=== PATIENT | male | born 1945 | race Caucasian/White ===

== ENCOUNTER 2025-01-08 14:16 | Inpatient (IN) ==
[2025-01-08] MEDS ORDERED: IOPAMIDOL 100 ML BOTTLE IV ONE (14:17)
[2025-01-08 15:25] LABS: Basophils # (Auto) 0.05 K/mcL (0.00-0.30); Basophils % (Auto) 0.2 % (0.0-2.0); Eosinophils # (Auto) 0.04 K/mcL (0.00-0.70); Eosinophils % (Auto) 0.2 % (0.0-7.0); Hematocrit 41.6 % (40.1-51.0); Hemoglobin 14.1 g/dL (13.7-17.5); Lymphocytes # (Auto) 0.41 K/mcL (1.50-4.80); Lymphocytes % (Auto) 2.0 % (15.5-49.0); Mean Corpuscular HGB Conc 33.9 g/dL (31.0-36.0); Monocytes # (Auto) 0.99 K/mcL (0.10-0.90); Monocytes % (Auto) 4.7 % (1.0-12.0); Neutrophils % (Auto) 92.5 % (38.0-78.0); Platelet Count 197 K/mcL (140-440); RBC 4.33 M/mcL (4.63-6.08); WBC 20.9 K/mcL (4.5-11.0)
[2025-01-08 15:49] LABS: ALT/SGPT 84 U/L (<40); AST/SGOT 93 U/L (<40); Albumin 3.9 gm/dL (3.2-5.2); Albumin/Globulin Ratio 1.9 (1.0-2.3); Alkaline Phosphatase 74 U/L (39-117); Anion Gap 14.0 (8.0-16.0); Bilirubin,Total 1.7 mg/dL (0.1-1.0); Blood Urea Nitrogen 16 mg/dL (8-23); Calcium 9.1 mg/dL (8.6-10.4); Carbon Dioxide 21 mmol/L (22-30); Chloride 101 mmol/L (96-108); Globulin 2.1 gm/dL (2.2-3.7); Glucose 132 mg/dL (70-105); Potassium 4.2 mmol/L (3.3-5.1); Sodium 136 mmol/L (133-145)
[2025-01-08 16:11] LABS: Bilirubin,Urine Negative (Negative); Color,Urine Yellow; Glucose,Urine (UA) Negative (Negative); Ketones,Urine 15 mg/dL (Negative); Leukocyte Esterase,Urine Negative /uL (Negative); Mucus,Urine Few /hpf; PH,Urine 7.0 (5.0-9.0); Protein,Urine 100 mg/dL (Negative); Specific Gravity,Urine 1.020 (1.000-1.035); Urobilinogen,Urine Normal
[2025-01-08] MEDS: ACETAMINOPHEN 1,000 MG/100 ML BAG IV ONE (16:30)
[2025-01-08] MEDS: VANCOMYCIN 1,500 MG in 0.9 % SODIUM CHLORIDE 250 ML IV ONE (16:36)
[2025-01-08] MEDS: CEFEPIME 1 GM VIAL IV ONE (17:15)
[2025-01-08] MEDS: VANCOMYCIN 1,500 MG in 0.9 % SODIUM CHLORIDE 500 ML IV ONE ×2 (17:15→21:41)
[2025-01-08] MEDS: KETOROLAC 30 MG/ML VIAL IV ONE (18:32)
[2025-01-08] MEDS ORDERED: KETOROLAC 15 MG/ML VIAL IV PRN (21:31)
[2025-01-08] MEDS ORDERED: VANCOMYCIN PER PHARMACY IV SCH (21:31)
[2025-01-08] MEDS ORDERED: ONDANSETRON 4 MG/2 ML VIAL IV PRN (21:31)
[2025-01-08] MEDS ORDERED: LACTULOSE 20 GM/30 ML ORAL.SOL PO PRN (21:31)
[2025-01-08] MEDS: SENNOSIDES 1 TABLET PO SCH (22:37)
[2025-01-08] MEDS: TAMSULOSIN 0.4 MG CAPSULE PO SCH (22:37)
[2025-01-08] MEDS: 0.9 % SODIUM CHLORIDE 10 ML SYRINGE IV SCH (22:38)
[2025-01-08] MEDS: APIXABAN 5 MG TABLET PO SCH (22:38)
[2025-01-08] MEDS: CEFEPIME 2 GM VIAL IV SCH (22:38)
[2025-01-08] MEDS: ATORVASTATIN 10 MG TABLET PO SCH (22:38)
[2025-01-08 23:13] LABS: ALT/SGPT 74 U/L (<40); AST/SGOT 64 U/L (<40); Albumin 3.6 gm/dL (3.2-5.2); Albumin/Globulin Ratio 1.8 (1.0-2.3); Alkaline Phosphatase 65 U/L (39-117); Anion Gap 10.0 (8.0-16.0); Bilirubin,Direct 0.6 mg/dL (<0.3); Bilirubin,Total 1.4 mg/dL (0.1-1.0); Blood Urea Nitrogen 18 mg/dL (8-23); Calcium 8.9 mg/dL (8.6-10.4); Carbon Dioxide 22 mmol/L (22-30); Chloride 103 mmol/L (96-108); Globulin 2.0 gm/dL (2.2-3.7); Glucose 137 mg/dL (70-105); Phosphorous 3.6 mg/dL (2.5-4.5); Potassium 4.0 mmol/L (3.3-5.1); Sodium 135 mmol/L (133-145); Triglycerides 48 mg/dL (<150); Uric Acid 6.3 mg/dL (2.5-8.0)
[2025-01-09] MEDS ORDERED: KETOROLAC 15 MG/ML VIAL IV PRN
[2025-01-09] MEDS: ACETAMINOPHEN 325 MG TABLET PO PRN (00:31)
[2025-01-09 06:25] LABS: ALT/SGPT 64 U/L (<40); AST/SGOT 45 U/L (<40); Albumin 3.4 gm/dL (3.2-5.2); Albumin/Globulin Ratio 1.9 (1.0-2.3); Alkaline Phosphatase 60 U/L (39-117); Anion Gap 11.0 (8.0-16.0); Bilirubin,Direct 0.7 mg/dL (<0.3); Bilirubin,Total 1.5 mg/dL (0.1-1.0); Blood Urea Nitrogen 17 mg/dL (8-23); Calcium 8.8 mg/dL (8.6-10.4); Carbon Dioxide 23 mmol/L (22-30); Chloride 100 mmol/L (96-108); Globulin 1.8 gm/dL (2.2-3.7); Glucose 118 mg/dL (70-105); Phosphorous 3.3 mg/dL (2.5-4.5); Potassium 3.9 mmol/L (3.3-5.1); Sodium 134 mmol/L (133-145); Triglycerides 41 mg/dL (<150); Uric Acid 6.0 mg/dL (2.5-8.0)
[2025-01-09 06:39] LABS: Basophils # (Auto) 0.04 K/mcL (0.00-0.30); Basophils % (Auto) 0.2 % (0.0-2.0); Eosinophils # (Auto) 0.03 K/mcL (0.00-0.70); Eosinophils % (Auto) 0.2 % (0.0-7.0); Hematocrit 37.5 % (40.1-51.0); Hemoglobin 12.4 g/dL (13.7-17.5); Lymphocytes # (Auto) 0.73 K/mcL (1.50-4.80); Lymphocytes % (Auto) 4.5 % (15.5-49.0); Mean Corpuscular HGB Conc 33.1 g/dL (31.0-36.0); Monocytes # (Auto) 0.98 K/mcL (0.10-0.90); Monocytes % (Auto) 6.0 % (1.0-12.0); Neutrophils % (Auto) 88.8 % (38.0-78.0); Platelet Count 156 K/mcL (140-440); RBC 3.85 M/mcL (4.63-6.08); WBC 16.2 K/mcL (4.5-11.0)
[2025-01-09] MEDS: DILTIAZEM 180 MG CAP.XL.24H PO SCH (08:55)
[2025-01-09] MEDS: MONTELUKAST 10 MG TABLET PO SCH (09:48)
[2025-01-09] MEDS: VITAMIN D3 125 MCG TABLET PO SCH (09:48)
[2025-01-09] MEDS: VANCOMYCIN 1,000 MG in 0.9 % SODIUM CHLORIDE 250 ML IV SCH (09:49)
[2025-01-09] MEDS: METOPROLOL SUCCINATE 25 MG TAB.XL.24H PO SCH (09:49)
[2025-01-09] MEDS: FUROSEMIDE 20 MG/2 ML VIAL IV ONE (09:53)
[2025-01-09] MEDS: DILTIAZEM 120 MG CAP.XL.24H PO SCH (10:02)
[2025-01-09] MEDS: DICLOFENAC SODIUM 2.5 ML DROPS OP SCH (15:27)
[2025-01-09] MEDS: FUROSEMIDE 20 MG/2 ML VIAL IV SCH (15:37)
[2025-01-09] MEDS ORDERED: KETOCONAZOLE 2% TOP CRM 15GM TUBE TOPICAL PRN (16:24)
[2025-01-09] MEDS ORDERED: CLOBETASOL PROP OINT 0.05% TUBE 15GM TOPICAL PRN (16:24)
[2025-01-09] MEDS: APIXABAN 5 MG TABLET PO SCH (20:26)
[2025-01-09] MEDS: TAMSULOSIN 0.4 MG CAPSULE PO SCH (20:26)
[2025-01-09] MEDS: ATORVASTATIN 10 MG TABLET PO SCH (20:26)
[2025-01-09] MEDS: NEOMYCIN AD SCH (20:31)
[2025-01-09] MEDS: POLYMYXIN B AD SCH (20:31)
[2025-01-09] MEDS: DEXAMETHASONE AD SCH (20:31)
[2025-01-10 06:01] LABS: Basophils # (Auto) 0.04 K/mcL (0.00-0.30); Basophils % (Auto) 0.3 % (0.0-2.0); Eosinophils # (Auto) 0.24 K/mcL (0.00-0.70); Eosinophils % (Auto) 1.9 % (0.0-7.0); Hematocrit 38.1 % (40.1-51.0); Hemoglobin 12.8 g/dL (13.7-17.5); Lymphocytes # (Auto) 1.05 K/mcL (1.50-4.80); Lymphocytes % (Auto) 8.2 % (15.5-49.0); Mean Corpuscular HGB Conc 33.6 g/dL (31.0-36.0); Monocytes # (Auto) 1.17 K/mcL (0.10-0.90); Monocytes % (Auto) 9.1 % (1.0-12.0); Neutrophils % (Auto) 80.0 % (38.0-78.0); Platelet Count 145 K/mcL (140-440); RBC 3.94 M/mcL (4.63-6.08); WBC 12.9 K/mcL (4.5-11.0)
[2025-01-10 06:53] LABS: ALT/SGPT 47 U/L (<40); AST/SGOT 36 U/L (<40); Albumin 3.3 gm/dL (3.2-5.2); Albumin/Globulin Ratio 1.5 (1.0-2.3); Alkaline Phosphatase 58 U/L (39-117); Anion Gap 9.0 (8.0-16.0); Bilirubin,Total 0.9 mg/dL (0.1-1.0); Blood Urea Nitrogen 17 mg/dL (8-23); Calcium 8.5 mg/dL (8.6-10.4); Carbon Dioxide 23 mmol/L (22-30); Chloride 102 mmol/L (96-108); Globulin 2.2 gm/dL (2.2-3.7); Glucose 112 mg/dL (70-105); Potassium 3.6 mmol/L (3.3-5.1); Sodium 134 mmol/L (133-145)
[2025-01-10] MEDS: SPIRONOLACTONE 25 MG TABLET PO SCH (08:17)
[2025-01-10] MEDS: DILTIAZEM 120 MG CAP.XL.24H PO SCH (08:17)
[2025-01-10] MEDS: MULTIVIT,THER IRON,CA,FA & MIN 1 TABLET PO SCH (08:18)
[2025-01-10] MEDS ORDERED: ATORVASTATIN 10 MG TABLET PO SCH (09:00)
[2025-01-10] MEDS ORDERED: FEXOFENADINE 180 MG TABLET PO SCH (09:00)
[2025-01-10] MEDS ORDERED: TAMSULOSIN 0.4 MG CAPSULE PO SCH (09:00)
[2025-01-10] MEDS: FUROSEMIDE 40 MG TABLET PO SCH (15:16)
[2025-01-10] MEDS: POTASSIUM CHLORIDE 20 MEQ TABLET PO SCH (16:57)
[2025-01-11] MEDS: MELATONIN 3 MG TABLET PO PRN (00:36)
[2025-01-11] MEDS: MELATONIN 3 MG TABLET PO ONE (00:42)
[2025-01-11 06:05] LABS: Basophils # (Auto) 0.05 K/mcL (0.00-0.30); Basophils % (Auto) 0.5 % (0.0-2.0); Eosinophils # (Auto) 0.39 K/mcL (0.00-0.70); Eosinophils % (Auto) 4.0 % (0.0-7.0); Hematocrit 36.2 % (40.1-51.0); Hemoglobin 12.5 g/dL (13.7-17.5); Lymphocytes # (Auto) 1.24 K/mcL (1.50-4.80); Lymphocytes % (Auto) 12.7 % (15.5-49.0); Mean Corpuscular HGB Conc 34.5 g/dL (31.0-36.0); Monocytes # (Auto) 0.99 K/mcL (0.10-0.90); Monocytes % (Auto) 10.2 % (1.0-12.0); Neutrophils % (Auto) 72.1 % (38.0-78.0); Platelet Count 171 K/mcL (140-440); RBC 3.81 M/mcL (4.63-6.08); WBC 9.8 K/mcL (4.5-11.0)
[2025-01-11 06:26] LABS: ALT/SGPT 58 U/L (<40); AST/SGOT 43 U/L (<40); Albumin 3.3 gm/dL (3.2-5.2); Albumin/Globulin Ratio 1.6 (1.0-2.3); Alkaline Phosphatase 59 U/L (39-117); Anion Gap 11.0 (8.0-16.0); Bilirubin,Total 0.8 mg/dL (0.1-1.0); Blood Urea Nitrogen 20 mg/dL (8-23); Calcium 8.4 mg/dL (8.6-10.4); Carbon Dioxide 23 mmol/L (22-30); Chloride 100 mmol/L (96-108); Globulin 2.1 gm/dL (2.2-3.7); Glucose 101 mg/dL (70-105); Potassium 3.7 mmol/L (3.3-5.1); Sodium 134 mmol/L (133-145)
[2025-01-11 06:54] VITALS: O2SAT 99
[2025-01-11 11:14] VITALS: TEMP 97.6
== END 2025-01-11 14:55 | disposition home or self-care (01) | DRG 602 ==
LOC: ED 14:16 → ICU 21:25 → MEDSUR 01-10 09:53
PROVIDERS: ADMIT Internal Medicine; ATTEND Internal Medicine